=== PATIENT | female | born 1995 | race Two or more races ===

== ENCOUNTER 2021-02-14 20:34 | Outpatient (CLI) | payer OTHER | END 2021-02-15 13:06 | disposition home or self-care (01) | LOC: OBS/DEL 20:34 | PROVIDERS: ATTEND Obstetrics & Gynecology | DX: O36.8130 Decreased fetal movements, third trimester, not applicable or unspecified (principal); Z3A.35 35 weeks gestation of pregnancy ==

== ENCOUNTER 2021-02-20 01:19 | Outpatient (CLI) | payer OTHER | END 2021-02-20 10:30 | disposition home or self-care (01) | LOC: OBS/DEL 01:19 | PROVIDERS: ATTEND Obstetrics & Gynecology | DX: O26.893 Other specified pregnancy related conditions, third trimester (principal); R10.2 Pelvic and perineal pain; Z3A.36 36 weeks gestation of pregnancy ==